=== PATIENT | female | born 1995 | race Caucasian/White ===

== ENCOUNTER 2019-04-03 07:06 | Emergency (ER) | payer BC ==
[~2019-04-03] VITALS: Ht 172.7 cm; Wt 68.0 kg
--- NOTE | 2019-04-03 07:20 | NUR ---
C/O MIGRAINE SINCE MARCH 11 AND WORST TODAY, +N/V, PATIENT A/OX4, FRIEND AT BEDSIDE, PLACED ON THE MONITOR. VSPALMIRA Perez. WILL MONITOR.
[2019-04-03] MEDS ORDERED: HYDROMORPHONE 1 MG/1 ML DISP.SYRIN IV ONE (07:30)
[2019-04-03] MEDS ORDERED: IV NS 0.9% 1,000 ML IV ONE (07:30)
[2019-04-03] MEDS ORDERED: diphenhydrAMINE HCL 50 MG/ML VIAL IV ONE (07:30)
[2019-04-03] MEDS ORDERED: METOCLOPRAMIDE HCL 10 MG/2 ML VIAL IV ONE (07:30)
[2019-04-03] MEDS ORDERED: diphenhydrAMINE HCL 50 MG/ML VIAL ONE (07:32)
[2019-04-03] MEDS ORDERED: HYDROMORPHONE 1 MG/1 ML DISP.SYRIN ONE (07:33)
[2019-04-03] MEDS ORDERED: METOCLOPRAMIDE HCL 10 MG/2 ML VIAL ONE (07:33)
--- NOTE | 2019-04-03 09:11 | NUR ---
called [facility] [phone]
[2019-04-03] MEDS ORDERED: DEXAMETHASONE SOD PHOSPHATE 4 MG/ML VIAL IV ONE (09:30)
--- NOTE | 2019-04-03 09:30 | NUR ---
SPOKE WITH SABRA AT [facility], [employer] SENT VIA FAX.
[2019-04-03] MEDS ORDERED: DEXAMETHASONE SOD PHOSPHATE 4 MG/ML VIAL ONE (09:31)
[2019-04-03 09:36] LABS: BASOPHILS % (AUTO) 0.4 % (0.0-2.0); EOSINOPHILS % (AUTO) 0.1 % (0.0-6.0); HEMATOCRIT 33 % (33-45); HEMOGLOBIN 10.4 g/dL (11.5-14.8); LYMPHOCYTES # (AUTO) 1.7 /CMM (0.8-4.8); MEAN CORPUSCULAR HGB CONC 32 g/dl (31.0-36.0); MEAN CORPUSCULAR VOLUME 77 fL (82-100); MONOCYTES # (AUTO) 0.6 /CMM (0.1-1.30); MONOCYTES % (AUTO) 6.7 % (2.0-12.0); NEUTROPHILS % (AUTO) 72.8 % (43.0-81.0); PLATELET COUNT (AUTO) 339 /CMM (150-450); RED BLOOD CELL COUNT(AUTO) 4.27 MIL/uL (4.0-5.2); WHITE BLOOD COUNT (AUTO) 8.3 K/uL (4.3-11.0)
[2019-04-03 09:44] LABS: CALCIUM, SERUM 10.5 mg/dL (8.5-10.1); CREATININE 1.1 mg/dL (0.6-1.3); POTASSIUM 5.2 mmol/L (3.5-5.1)
--- NOTE | 2019-04-03 10:33 | NUR ---
PATIENT IN BED, RESTING COMFORTABLY. VSS. NAD. FRIEND AT BEDSIDE. TRANSFER STILL PENDING.
--- NOTE | 2019-04-03 10:51 | NUR ---
TRANSPORT CALLED [phone] ETA IS:
--- NOTE | 2019-04-03 10:51 | NUR ---
RECEIVED A CALL FROM SABRA AT [facility], PATIENT'S ROOM # IS [id number] PHONE# FOR REPORT [phone] EXT [phone]. WILL CALL FOR TRANSPORTATION.
--- NOTE | 2019-04-03 10:58 | NUR ---
TRANSPORT CALLED [phone]. ETA IS [phone] TRIP NUMBER [id number]
--- NOTE | 2019-04-03 11:07 | NUR ---
REPORT GIVEN TO KAYE RAINEY AT [place].
[2019-04-03 11:08] VITALS: BP 125/68
--- NOTE | 2019-04-03 11:23 | NUR ---
[facility] TRANSPORT CAME, REPORT GIVEN TO RN. PATIENT LEFT IN STABLE CONDITION, VITALS STABLE. TRANSFERRED TO [facility].
== END 2019-04-03 11:26 | disposition short-term general hospital (02) ==
LOC: ER 07:09
DX: G93.89 Other specified disorders of brain (principal); G43.909 Migraine, unspecified, not intractable, without status migrainosus; R11.2 Nausea with vomiting, unspecified; F12.10 Cannabis abuse, uncomplicated
CPT/HCPCS: 36415; 70450; 80048; 85025; 85730; 96361; 96374; 96375; 99291; J1100; J1170; J1200; J2765; J7030

== ENCOUNTER 2019-09-10 03:53 | Emergency (ER) | payer BC ==
[~2019-09-10] VITALS: Ht 172.7 cm; Wt 68.0 kg
--- NOTE | 2019-09-10 04:08 | NUR ---
PT BIBS.C/O "CORINNE VOMITED X20 TIMES, CANT HOLD ANYTHING DOWN" -SOB NOTED.VSS. AOX4. -N/V NOTED.
[2019-09-10] MEDS ORDERED: ONDANSETRON HCL/PF 4 MG/2 ML VIAL ONE (04:19)
[2019-09-10 04:35] LABS: BASOPHILS % (AUTO) 0.2 % (0.0-2.0); HEMATOCRIT 32 % (33-45); HEMOGLOBIN 10.2 g/dL (11.5-14.8); LYMPHOCYTES # (AUTO) 0.7 /CMM (0.8-4.8); LYMPHOCYTES % (AUTO) 6.8 % (20.0-44.0); MEAN CORPUSCULAR HGB CONC 32 g/dl (31.0-36.0); MEAN CORPUSCULAR VOLUME 79 fL (82-100); MONOCYTES # (AUTO) 0.2 /CMM (0.1-1.30); NEUTROPHILS # (AUTO) 9.3 /CMM (1.8-8.9); PLATELET COUNT (AUTO) 288 /CMM (150-450); RED BLOOD CELL COUNT(AUTO) 4.08 MIL/uL (4.0-5.2); WHITE BLOOD COUNT (AUTO) 10.2 K/uL (4.3-11.0)
[2019-09-10 04:44] LABS: CALCIUM, SERUM 9.3 mg/dL (8.5-10.1); CREATININE 0.9 mg/dL (0.6-1.3)
[2019-09-10 04:50] LABS: ALBUMIN 4.2 g/dL (3.4-5.0); BILIRUBIN,DIRECT 0.1 mg/dL (0.0-0.2); BILIRUBIN,TOTAL 0.4 mg/dL (0.2-1.0); TOTAL PROTEIN, SERUM 7.6 g/dL (6.4-8.2)
[2019-09-10] MEDS: ONDANSETRON HCL/PF 4 MG/2 ML VIAL IVP ONE (05:22)
[2019-09-10] MEDS: IV NS 0.9% 1,000 ML BAG IV ONE (05:22)
[2019-09-10] MEDS ORDERED: LIDOCAINE VISCOUS 2% UD 15 ML UDC ONE (05:48)
[2019-09-10] MEDS ORDERED: MAG HYDROX/AL HYDROX/SIMETH 30 ML UDC ONE (05:48)
[2019-09-10] MEDS: MAG HYDROX/AL HYDROX/SIMETH 30 ML UDC PO ONE (05:56)
[2019-09-10] MEDS: LIDOCAINE VISCOUS 2% UD 15 ML UDC MM ONE (05:56)
[2019-09-10 06:04] VITALS: BP 128/77
== END 2019-09-10 06:05 | disposition home or self-care (01) ==
LOC: ER 03:54
DX: R11.2 Nausea with vomiting, unspecified (principal); F12.10 Cannabis abuse, uncomplicated; Z88.1 Allergy status to other antibiotic agents
CPT/HCPCS: 36415; 80048; 80076; 83690; 85025; 85730; 96374; 99283; J2405; J7030